=== PATIENT | female | born 1970 | race African-American/Black ===

== ENCOUNTER 2024-02-10 17:52 | Emergency (ER) | payer BC, OTHER ==
[2024-02-10 18:25] VITALS: BP 119/80; PULSE 62; RESP 20; TEMP 98; BMI 26.5
[2024-02-10] MEDS ORDERED: MECLIZINE HCL 25 MG TABLET (FP) ONE (18:39)
[2024-02-10] MEDS ORDERED: ACETAMINOPHEN 500 MG TABLET (FP) ONE (18:42)
[2024-02-10] MEDS: MECLIZINE HCL 25 MG TABLET (FP) PO ONE (18:44)
[2024-02-10] MEDS: ACETAMINOPHEN 500 MG TABLET (FP) PO ONE (18:45)
[2024-02-10 19:35] LABS: HEMATOCRIT 33.5 % (32.4-45.2); HEMOGLOBIN 10.7 G/dL (10.7-15.3); MCH 25.9 pg (25.7-33.7); MCHC 31.9 g/dl (32.0-36.0); MEAN CELL VOLUME 81.1 fl (80-96); MEAN PLT VOLUME 11.4 fl (7.5-11.1); PLATELET COUNT 106.8 10^3/uL (134-434); RBC 4.13 10^6/uL (3.60-5.2); RDW 16.4 % (11.6-15.6); WHITE BLOOD COUNT 4.3 10^3/uL (4.0-10.8)
[2024-02-10 19:44] LABS: PLATELET ESTIMATE SLT DECREASE
[2024-02-10 20:00] LABS: ALBUMIN 4.3 g/dl (3.4-5.0); ALK PHOS 78 U/L (45-117); ANION GAP 4 mmol/L (4-13); BILIRUBIN,TOTAL 0.4 mg/dl (0.2-1); CALCIUM 9.5 mg/dl (8.5-10.1); CHLORIDE 107 mmol/L (98-107); CO2 30 mmol/L (21-32); CREATININE 0.9 mg/dl (0.6-1.3); GLUCOSE,RANDOM 86 mg/dl (74-106); MAGNESIUM 1.9 mg/dL (1.8-2.4); SGOT/AST 25 U/L (15-37); SGPT/ALT 16 U/L (7-52); SODIUM 141 mmol/L (136-145); TOT PROT 6.8 g/dl (6.4-8.2)
[2024-02-10 22:22] LABS: HEMATOCRIT 34.9 % (32.4-45.2); HEMOGLOBIN 10.8 G/dL (10.7-15.3); MCH 25.1 pg (25.7-33.7); MEAN PLT VOLUME 12.5 fl (7.5-11.1); RBC 4.31 10^6/uL (3.60-5.2); RDW 16.6 % (11.6-15.6)
[2024-02-10 22:34] LABS: PLATELET COUNT 107 10^3/uL (134-434)
[2024-02-10 22:36] LABS: PLATELET ESTIMATE ADEQUATE
== END 2024-02-10 22:36 | disposition home or self-care (01) ==
LOC: FER 17:52
DX: R42 Dizziness and giddiness (principal); D69.6 Thrombocytopenia, unspecified; Y99.0 Civilian activity done for income or pay
CPT/HCPCS: 36415; 70470-TC; 80053; 83735; 85027; 93005; 99285-25; Q9967